=== PATIENT | female | born 1995 | race Caucasian/White ===

== ENCOUNTER 2020-03-14 12:23 | Emergency (ER) | payer MEDICAID ==
[~2020-03-14] VITALS: Ht 167.6 cm; Wt 96.7 kg
[2020-03-14 12:36] VITALS: BP 106/76
--- NOTE | 2020-03-14 13:56 | NUR ---
DC RN ONLY: Patient/Caregiver given discharge instructions and they have confirmed that they understand the instructions. Patient ambulatory with steady gait.
== END 2020-03-14 13:58 | disposition home or self-care (01) ==
LOC: ED 13:35
DX: S32.2XXA Fracture of coccyx, initial encounter for closed fracture (principal); S32.810A Multiple fractures of pelvis with stable disruption of pelvic ring, initial encounter for closed fracture; W19.XXXA Unspecified fall, initial encounter; Y93.89 Activity, other specified; Y92.098 Other place in other non-institutional residence as the place of occurrence of the external cause; Y99.8 Other external cause status
CPT/HCPCS: 72220; 99283

== ENCOUNTER 2020-03-17 13:42 | Emergency (ER) | payer MEDICAID ==
[~2020-03-17] VITALS: Ht 167.6 cm; Wt 97.7 kg
[2020-03-17 13:56] VITALS: BP 120/81
--- NOTE | 2020-03-17 14:53 | NUR ---
VENEER SAMPLE [employer]KER: PT AMBULATORY WITH STEADY GAIT TO ROOM AT THIS TIME.
== END 2020-03-17 15:58 | disposition home or self-care (01) ==
LOC: ED 15:43
DX: M53.3 Sacrococcygeal disorders, not elsewhere classified (principal); F17.210 Nicotine dependence, cigarettes, uncomplicated; Z76.0 Encounter for issue of repeat prescription
CPT/HCPCS: 99281

== ENCOUNTER 2020-04-18 11:01 | Emergency (ER) | payer MEDICAID ==
[~2020-04-18] VITALS: Ht 165.1 cm; Wt 101.0 kg
[2020-04-18 11:08] VITALS: BP 135/109
[2020-04-18] MEDS ORDERED: HYDROcodone/APAP 5/325 TABLET PO ONE (11:30)
[2020-04-18] MEDS ORDERED: METHOCARBAMOL 750 MG TABLET PO ONE (11:30)
[2020-04-18] MEDS ORDERED: METHOCARBAMOL 750 MG TABLET ONE (11:37)
[2020-04-18] MEDS ORDERED: HYDROcodone/APAP 5/325 TABLET ONE (11:38)
--- NOTE | 2020-04-18 12:29 | NUR ---
PT MEDICATED PER MAR
--- NOTE | 2020-04-18 13:22 | NUR ---
Patient given discharge instructions and they have confirmed that they understand the instructions. Patient ambulatory with steady gait.
== END 2020-04-18 13:23 | disposition home or self-care (01) ==
LOC: ED 11:31
DX: S32.2XXA Fracture of coccyx, initial encounter for closed fracture (principal); Z87.891 Personal history of nicotine dependence; W10.8XXA Fall (on) (from) other stairs and steps, initial encounter; Y93.89 Activity, other specified; Y92.89 Other specified places as the place of occurrence of the external cause; Y99.8 Other external cause status
CPT/HCPCS: 72110; 72220; 99284